=== PATIENT | female | born 1990 | race Caucasian/White ===

== ENCOUNTER 2016-07-20 22:46 | Observation (INO) | payer MEDICAID ==
[~2016-07-20] VITALS: Ht 154.9 cm; Wt 56.0 kg
[~2016-07-20 22:46] MED LIST: 1-ME1LIQ PO; B COTAB7 PO; FERR324T4 PO; GNP50LIQ PO; HYDR50TA15 PO; LABE100 PO; OMEG100037
[2016-07-20 22:48] VITALS: BP 168/109; PULSE 85; RESP 16; TEMP 97.8; O2SAT 100
[2016-07-20] MEDS ORDERED: AMLO5TAB2 PO (23:27)
[2016-07-20] MEDS ORDERED: SODI325T PO ×2 (23:27)
[2016-07-20] MEDS ORDERED: FERR1TAB36 PO (23:27)
[2016-07-20] MEDS ORDERED: CARV12.52 PO (23:27)
[2016-07-20] MEDS ORDERED: SENN1TAB2 PO (23:27)
[2016-07-20] MEDS ORDERED: VITATAB11 (23:27)
[2016-07-20] MEDS ORDERED: SODIUM CHLOR 0.9% 1000 ML INJ 1,000 ML IV SCH (23:33)
[2016-07-20] MEDS ORDERED: SODIUM CHLORIDE 0.9% FLUSH 10 ML FLUSH IV FLUSH PRN (23:45)
[2016-07-20] MEDS ORDERED: MORPHINE SULFATE 4 MG/ML INJ IV PUSH ONE (23:45)
[2016-07-20 23:59] LABS: AUTOMATED NEUTROPHIL # 3.5 TH/MM3 (1.8-7.7); BASOPHIL % 0.4 % (0.0-2.0); EOSINOPHIL # 0.2 TH/MM3 (0-0.4); EOSINOPHIL % 3.1 % (0.0-4.0); HEMATOCRIT 41.6 % (35.0-46.0); HEMO FLAGS DIFF FINAL; LYMPH % 37.1 % (9.0-44.0); LYMPHOCYTE # 2.5 TH/MM3 (1.0-4.8); MEAN CORPUSCULAR HEMOGLOBIN 30.1 PG (27.0-34.0); MEAN CORPUSCULAR HGB CONC 34.2 % (32.0-36.0); NEUT % 51.4 % (16.0-70.0); PLATELET COUNT 214 TH/MM3 (150-450); RED BLOOD COUNT 4.73 MIL/MM3 (4.00-5.30); RED CELL DISTRIBUTION WIDTH 11.8 % (11.6-17.2); WHITE BLOOD COUNT 6.8 TH/MM3 (4.0-11.0)
[2016-07-21] VITALS (9 sets, daily range): BP systolic 113–166; BP diastolic 66–109; PULSE 59–89; RESP 14–21; TEMP 98–98.8; O2SAT 76–100
[2016-07-21 00:08] LABS: APTT (PATIENT) 25.4 SEC (24.3-30.1); PROTHROMBIN TIME - PATIENT 10.5 SEC (9.8-11.6)
--- NOTE | 2016-07-21 00:10 | PD ---
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 Patient reports that she is waiting for kidney transplant, he does see a pantograph machine operator at [facility], Dr. Gillis. Reports that in April, the peritoneal dialysis was placed to the left side of her abdomen at [facility] on April 08, 2016 in preparation for dialysis. Patient reports that she sees her pantograph machine operator and has her peritoneal dialysis catheter flushed every 2 weeks. Reports that she did have this catheter flushed on Wednesday, reports concerns as for the past week, she has had right lower quadrant abdominal pain. She reports that she has no pain to her dialysis site, reports no fevers or chills. Reports that she has been feeling nauseous and has had overall decreased oral intake. Patient reports concerns as her pain has been getting progressively worse over the past week. Patient reports that she had a normal bowel movement yesterday, no bowel movement today. PFSH Past Medical History Gastrointestinal Disorders: Yes (CONSTIPATION ) Hypertension: Yes Tetanus Vaccination: > 5 Years ?: Not LMP: 06/28/2016 Past Surgical History Eye Surgery: Yes Genitourinary Surgery: Yes (PERITONEAL CATHETER ) Social History Alcohol Use: No Tobacco Use: No Substance Use: No Allergies-Medications (Allergen,Severity, Reaction): Coded Allergies: Shellfish (Verified Allergy, Severe, carries EPI Pen, 07/20/16) Reported Meds & Prescriptions Reported Meds & Active Scripts Active Reported Sodium Bicarbonate 325 Mg Tab 325 Mg PO TIDPC Sodium Bicarbonate 325 Mg Tab 325 Mg PO BIDPC Vitamin B Complex (B-Complex Vitamins) 1 Tab Iron (Ferrous Sulfate) 325 Mg Tab 325 Mg PO DAILY Take Carvedilol 12.5 Mg Tab 12.5 Mg PO BID Amlodipine (Amlodipine Besylate) 5 Mg Tab 5 Mg PO BID Senna-Docusate Sodium (Sennosides-Docusate Sodium) 8.6-50 Mg Tab 2 Tab PO DAILY Review of Systems General / Constitutional: No: Fever Eyes: No: Visual changes HENT: No: Headaches Cardiovascular: No: Chest Pain or Discomfort Respiratory: No: Shortness of Breath Gastrointestinal: Positive: Nausea, Vomiting, Abdominal Pain Genitourinary: No: Dysuria Musculoskeletal: No: Pain Skin: No Rash Neurologic: No: Weakness Psychiatric: No: Depression Endocrine: No: Polydipsia Hematologic/Lymphatic: No: Easy Bruising Physical Exam Narrative GENERAL: Moderate distress SKIN: Focused skin assessment warm/dry. HEAD: Atraumatic. Normocephalic. EYES: Pupils equal and round. No scleral icterus. No injection or drainage. ENT: No nasal bleeding or discharge. Mucous membranes pink and moist. NECK: Trachea midline. No JVD. CARDIOVASCULAR: Regular rate and rhythm. No murmur appreciated. RESPIRATORY: No accessory muscle use. Clear to auscultation. Breath sounds equal bilaterally. GASTROINTESTINAL: Abdomen soft, tenderness to RLQ with guarding on exam, patient with no pain to her left lower abdomen, peritoneal dialysis catheter with no drainage or no signs of infection, no peritonitis on exam MUSCULOSKELETAL: No obvious deformities. No clubbing. No cyanosis. No edema. NEUROLOGICAL: Awake and alert. No obvious cranial nerve deficits. Motor grossly within normal limits. Normal speech. PSYCHIATRIC: Appropriate mood and affect; insight and judgment normal. Data Data Last Documented VS Vital Signs Date Time Temp Pulse Resp B/P Pulse Ox O2 Delivery O2 Flow Rate FiO2 07/21/16 00:15 89 16 166/109 100 Room Air 07/20/16 22:48 97.8 Orders Complete Blood Count With Diff (07/20/16 23:33) Comprehensive Metabolic Panel (07/20/16 23:33) Lipase (07/20/16 23:33) Prothrombin Time / Inr (Pt) (07/20/16 23:33) Act Partial Throm Time (Ptt) (07/20/16 23:33) Urinalysis - C+S If Indicated (07/20/16 23:33) Ct Abd/Pel W/O Iv Contrast (07/20/16 23:33) Iv Access Insert/Monitor (07/20/16 23:33) Morphine Inj (Morphine Inj) (07/20/16 23:45) Sodium Chlor 0.9% 1000 Ml Inj (Ns 1000 M (07/20/16 23:33) Sodium Chloride 0.9% Flush (Ns Flush) (07/20/16 23:45) Ed Urine Pregnancytest Poc (07/20/16 23:33) Morphine Inj (Morphine Inj) (07/21/16 02:30) Us Pelvis Comp W Dop Transvag (07/21/16 01:43) Place In Observation (07/21/16 ) Vital Signs (Adult) Q4H (07/21/16 04:11) Activity Oob Ad Miriam (07/21/16 04:11) Intake + Output FRANCIS.QSHIFT (07/21/16 04:11) Diet Regular Basic (07/21/16 Breakfast) Sodium Chlor 0.9% 1000 Ml Inj (Ns 1000 M (07/21/16 04:11) Sodium Chloride 0.9% Flush (Ns Flush) (07/21/16 04:15) Sodium Chloride 0.9% Flush (Ns Flush) (07/21/16 09:00) Acetaminophen (Tylenol) (07/21/16 04:15) Ondansetron Inj (Zofran Inj) (07/21/16 04:15) Comprehensive Metabolic Panel (07/22/16 06:00) Complete Blood Count With Diff (07/22/16 06:00) Resp Oxygen Wallace C Titrat 1-4 L (07/21/16 ) Scd Bilateral/Knee High FRANCIS.BID (07/21/16 04:11) Ovidio Bilateral/Knee High FRANCIS.QSHIFT (07/21/16 04:11) Naloxone Inj (Narcan Inj) (07/21/16 04:15) Morphine Inj (Morphine Inj) (07/21/16 04:15) Labs Laboratory Tests Test 07/20/16 07/21/16 23:15 00:10 White Blood Count 6.8 TH/MM3 Red Blood Count 4.73 MIL/MM3 Hemoglobin 14.2 GM/DL Hematocrit 41.6 % Mean Corpuscular Volume 88.0 FL Mean Corpuscular Hemoglobin 30.1 PG Mean Corpuscular Hemoglobin 34.2 % Concent Red Cell Distribution Width 11.8 % Platelet Count 214 TH/MM3 Mean Platelet Volume 8.5 FL Neutrophils (%) (Auto) 51.4 % Lymphocytes (%) (Auto) 37.1 % Monocytes (%) (Auto) 8.0 % Eosinophils (%) (Auto) 3.1 % Basophils (%) (Auto) 0.4 % Neutrophils # (Auto) 3.5 TH/MM3 Lymphocytes # (Auto) 2.5 TH/MM3 Monocytes # (Auto) 0.5 TH/MM3 Eosinophils # (Auto) 0.2 TH/MM3 Basophils # (Auto) 0.0 TH/MM3 CBC Comment DIFF FINAL Differential Comment Prothrombin Time 10.5 SEC Prothromb Time International 1.0 RATIO Ratio Activated Partial 25.4 SEC Thromboplast Time Sodium Level 142 MEQ/L Potassium Level 4.0 MEQ/L Chloride Level 106 MEQ/L Carbon Dioxide Level 26.1 MEQ/L Anion Gap 10 MEQ/L Blood Urea Nitrogen 38 MG/DL Creatinine 2.88 MG/DL Estimat Glomerular Filtration 20 ML/MIN Rate Random Glucose 84 MG/DL Calcium Level 8.9 MG/DL Total Bilirubin 0.4 MG/DL Aspartate Amino Transf 19 U/L (AST/SGOT) Alanine Aminotransferase 28 U/L (ALT/SGPT) Alkaline Phosphatase 52 U/L Total Protein 7.8 GM/DL Albumin 4.1 GM/DL Lipase 312 U/L Urine Color LIGHT-YELLOW Urine Turbidity CLEAR Urine pH 7.0 Urine Specific [place] 1.005 Urine Protein 30 mg/dL Urine Glucose (UA) NEG mg/dL Urine Ketones NEG mg/dL Urine Occult Blood NEG Urine Nitrite NEG Urine Bilirubin NEG Urine Urobilinogen LESS THAN 2.0 MG/DL Urine Leukocyte Esterase NEG Urine Squamous Epithelial 2 /hpf Cells Microscopic Urinalysis Comment CULT NOT INDICATED MDM Medical Decision Making Medical Screen Exam Complete: Yes Emergency Medical Condition: Yes Interpretation(s) Vital Signs Date Time Temp Pulse Resp B/P Pulse Ox O2 Delivery O2 Flow Rate FiO2 07/20/16 22:48 97.8 85 16 168/109 100 Room Air Differential Diagnosis Acute appendicitis, constipation, UTI, pyelonephritis, ovarian torsion, ovarian cyst, peritonitis Narrative Course Patient is a 25-year-old female who presents to emergency room with complaints of right lower quadrant abdominal pain which has been ongoing for the past week. She reports that the only change that she has had it for the past week with that she had her peritoneal dialysis flushed on Wednesday. Patient with no pain to her peritoneal dialysis abdominal site. Patient with no fevers or chills, reports nausea and vomiting. On exam, patient does have significant tenderness to her right lower quadrant, her dialysis site does not appear to be infected. Labs including CT abdomen and pelvis ordered to evaluate for possible appendicitis. CBC & BMP Diagram 5/22/17 23:15 Last Impressions Abdomen/Pelvis CT 07/20/16 1643 Signed Impressions: Service Date/Time: Thursday, July 21, 2016 01:00 - CONCLUSION: Asymmetrical size of the kidneys, otherwise unremarkable. Saturnino Nix MD Patient continues to have pain, CT of the abdomen and pelvis shows unremarkable appendix. Pelvic ultrasound ordered to evaluate for possible ovarian cysts Last Impressions Abdomen/Pelvis/Transvag US 07/21/16 0143 Signed Impressions: Service Date/Time: Thursday, July 21, 2016 02:23 - CONCLUSION: Small left ovarian cyst, slight fluid within the pelvis and intrauterine cavity. Saturnino Nix MD Abdomen/Pelvis CT 07/20/162332 Signed Impressions: Service Date/Time: Thursday, July 21, 2016 01:00 - CONCLUSION: Asymmetrical size of the kidneys, otherwise unremarkable. Saturnino Nix MD All labs and all studies reviewed with patient and her family members in detail. Patient not feeling any better at this time. Family requesting admission for pain control and serial abdominal evaluations case reviewed with Dr. Hunter who accepts pt to service Diagnosis Primary Impression: Ovarian cyst Additional Impression: Abdominal pain Qualified Code: R10.31 - Right lower quadrant abdominal pain Admitting Information Admitting Physician Requests: Observation Patient Instructions: General Instructions, Narcotic given in the ED Additional Instructions: Please provide patient with a copy of her lab work and studies at discharge Please follow-up with your primary care doctor, telegraph printer mechanic as well as your pantograph machine operator first thing in the morning Return to the emergency room if symptoms worsen or progress Return to the emergency room as needed Condition: Stable Erin Hoyt DO July 21, 2016 00:10
[2016-07-21 00:21] LABS: ALKALINE PHOSPHATASE 52 U/L (45-117); ALT (GPT) 28 U/L (10-53); ANION GAP 10 MEQ/L (5-15); AST (GOT) 19 U/L (15-37); BICARBONATE 26.1 MEQ/L (21.0-32.0); BLOOD UREA NITROGEN 38 MG/DL (7-18); CHLORIDE 106 MEQ/L (98-107); GLOMERULAR FILTRATION RATE 20 ML/MIN (>89); SODIUM (NA) 142 MEQ/L (136-145); TOTAL BILIRUBIN ADULT 0.4 MG/DL (0.2-1.0)
[2016-07-21 00:36] LABS: BLOOD, URINE NEG (NEG); GLUCOSE,URINE NEG (NEG); KETONE, URINE NEG (NEG); NITRITE,URINE NEG (NEG); SQUAMOUS EPITHELIAL CELL URINE 2 /hpf (0-5); URINE COLOR LIGHT-YELLOW (YELLW/STRAW)
[2016-07-21 00:41] LABS: COMMENT (UR) CULT NOT INDICATED; CULTURE IF INDICATED CULT NOT INDICATED
--- NOTE | 2016-07-21 01:13 | RADRPT ---
EXAM DATE/TIME: 07/21/2016 01:00 [facility] COMPARISON: No previous studies available for comparison. INDICATIONS : Right lower quadrant pain x1 week. ORAL CONTRAST: No oral contrast ingested. RADIATION DOSE: 4.84 CTDIvol (mGy) MEDICAL HISTORY : Renal failure, stage 5. Peritoneal catheter. SURGICAL HISTORY : None. ENCOUNTER: Initial ACUITY: 1 week PAIN SCALE: 10/10 LOCATION: Right lower quadrant TECHNIQUE: Volumetric scanning of the abdomen and pelvis was performed. Using automated exposure control and adjustment of the mA and/or kV according to patient size, radiation dose was kept as low as reasonably achievable to obtain optimal diagnostic quality images. FINDINGS: CT Abdomen: The right kidney measures 5.5 and the left side measures 7.8 cm in craniocaudal dimension . There is no evidence for any stones in the kidneys or the course of the ureters on either side. The re is no hydronephrosis. The liver, spleen, pancreas, adrenals are unremarkable. There is no evidence for any appreciable pathological adenopathy, free fluid, or bowel obstruction. There is a tube in t he peritoneal cavity may be a dialysis catheter. CT pelvis: There is no evidence for mass, abscess formation, or any significant adenopathy within the pelvis. The appendix appears intact without definite signs of appendicitis. CONCLUSION: Asymmetrical size of the kidneys, otherwise unremarkable. Saturnino Nix MD on July 21, 2016 at 1:07 Board Certified Radiologist. This report was verified electronically.
[2016-07-21] MEDS ORDERED: MORPHINE SULFATE 4 MG/ML INJ IV PUSH ONE (02:30)
--- NOTE | 2016-07-21 03:40 | RADRPT ---
EXAM DATE/TIME: 07/21/2016 02:23 [facility] COMPARISON: CT ABDOMEN & PELVIS W/O CONTRAST, July 21, 2016, 1:00. INDICATIONS : Right pelvic and flank pain. MEDICAL HISTORY : Hypertension. SURGICAL HISTORY : Thyroidectomy. Left eye prosthetic. Peritoneal catheter. Scar revision. ENCOUNTER: Initial ACUITY: 1 week PAIN SCORE: 10/10 LOCATION: Bilateral pelvis MEASUREMENTS: UTERUS: 7.6 x 3.8 x 3.3 cm ENDOMETRIAL STRIPE: 7 mm RIGHT OVARY: Nonvisualized LEFT OVARY: 2.8 x 2.6 x 1.9 cm FINDINGS: There is slight fluid within the lower uterine segment and there is also slight fluid within the left adnexa and cul-de-sac. An approximate 2.3 cm simple cyst is present in the left ovary and the right ovary is not visualized. CONCLUSION: Small left ovarian cyst, slight fluid within the pelvis and intrauterine cavity. Saturnino Nix MD on July 21, 2016 at 3:36 Board Certified Radiologist. This report was verified electronically.
[2016-07-21] MEDS ORDERED: ACETAMINOPHEN 325 MG TAB PO PRN (04:15)
[2016-07-21] MEDS ORDERED: NALOXONE HCL 0.4 MG/ML AMP IV PRN (04:15)
[2016-07-21] MEDS ORDERED: SODIUM CHLORIDE 0.9% FLUSH 10 ML FLUSH IV FLUSH PRN (04:15)
[2016-07-21] MEDS ORDERED: ONDANSETRON HCL 4 MG/2 ML VIAL IVP PRN (04:15)
--- NOTE | 2016-07-21 05:17 | HHI.HP ---
[facility] Service 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 Patient's last menstrual period 06/28/2016. Patient denies being sexually active and urine test in ER negative. Patient presents to the emergency department with complaints of right lower quadrant abdominal pain times one week. Patient describes the pain as progressively getting worse in nature 10 out of 10 in severity at its worse. RLQ abdominal pain described as a constant aching sensation worse with movement. Pain is better after morphine , is currently a 5 out of 10 associated with nausea but no vomiting. Patient reports last bowel movement was yesterday continues to have positive flatus. Patient denies chest pain vomiting diarrhea fevers chills or shortness of breath. Patient does have PD catheter on the left side of her abdomen was last flushed 07/13/2016. There is no discharge or erythema surrounding PD catheter insertion site. Patient has not yet used PD catheter for dialysis does have flushed routinely every 2 weeks. The patient says she normally has abdominal pain associated with her menses but because this is been going on for 1 week she got concerned as that was atypical. She says she has a PD catheter for dialysis which was placed this April. She says she is hoping not to use it but it is there in case she needs to start dialysis. She says she has been having normal urine output. She denies any symptoms associated with urination. She endorses constipation. 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 and hypertension Past Surgical History Multiple bilateral eye surgery secondary to premature retinopathy, tonsillectomy 1993, left eye prosthetic, PD catheter placed April 08, 2016 Reported Medications Sodium Bicarbonate 325 Mg Tab 325 Mg PO TIDPC Sodium Bicarbonate 325 Mg Tab 325 Mg PO BIDPC Vitamin B Complex (B-Complex Vitamins) 1 Tab Iron (Ferrous Sulfate) 325 Mg Tab 325 Mg PO DAILY Take Carvedilol 12.5 Mg Tab 12.5 Mg PO BID Amlodipine (Amlodipine Besylate) 5 Mg Tab 5 Mg PO BID Senna-Docusate Sodium (Sennosides-Docusate Sodium) 8.6-50 Mg Tab 2 Tab PO DAILY Allergies: Coded Allergies: Shellfish (Verified Allergy, Severe, carries EPI Pen, 07/20/16) Active Ordered Medications Current Medications Medications (Trade) Dose Ordered Sig/Edgardo Route Start Time Stop Time Status Last Admin (NS 1000 ml Inj) 1,000 ml @ 42 mls/hr [id number] IV 07/21/16 04:11 (NS Flush) 2 ml UNSCH PRN IV FLUSH 07/21/16 04:15 (NS Flush) 2 ml BID IV FLUSH 07/21/16 09:00 (Tylenol) 650 mg Q4H PRN PO 07/21/16 04:15 (Zofran Inj) 4 mg Q6H PRN IVP 07/21/16 04:15 (Narcan Inj) 0.4 mg UNSCH PRN IV 07/21/16 04:15 (Morphine Inj) 2 mg Q3H PRN IV PUSH 07/21/16 04:15 Family History Mother is 57 alive with prediabetes Father's 59 alive and healthy Maternal grandfather with history of CAD and CABG Paternal grandmother history of cancer unknown type Social History Denies tobacco use now the past denies illicit drug use known past reports rare EtOH use Physical Exam Vital Signs Vital Signs Date Time Temp Pulse Resp B/P Pulse Ox O2 Delivery O2 Flow Rate FiO2 07/21/16 04:24 74 14 123/87 98 Room Air 07/21/16 00:15 89 16 166/109 100 Room Air 07/20/16 22:48 97.8 85 16 168/109 100 Room Air Physical Exam GENERAL: This is a well-nourished, well-developed patient, appears anxious with discomfort SKIN: No rashes, ecchymoses or lesions. Cool and dry. HEAD: Atraumatic. Normocephalic. No temporal or scalp tenderness. EYES: Prosthetic left eye. Right eye extraocular motions intact. CARDIOVASCULAR: Regular rate and rhythm without murmurs, gallops, or rubs. RESPIRATORY: Clear to auscultation. Breath sounds equal bilaterally. No wheezes , rales, or rhonchi. GASTROINTESTINAL: Abdomen soft, tender to palpation right lower quadrant, nondistended. MUSCULOSKELETAL: Extremities without clubbing, cyanosis, or edema. No joint tenderness, effusion, or edema noted. No calf tenderness. Negative Homans sign bilaterally. NEUROLOGICAL: Awake and alert. No focal deficits appreciated. Motor and sensory grossly within normal limits. Five out of 5 muscle strength in all muscle groups. Normal speech. GEN: NAD. HEENT: Prosthetic left eye. Abdomen: Tender to palpation in RLQ, and below umbilicus. NEURO: Nystagmus noted in right eye. PSYCH: Mood and affect appropriate. Laboratory Laboratory Tests Test 07/20/16 07/21/16 23:15 00:10 White Blood Count 6.8 Red Blood Count 4.73 Hemoglobin 14.2 Hematocrit 41.6 Mean Corpuscular Volume 88.0 Mean Corpuscular Hemoglobin 30.1 Mean Corpuscular Hemoglobin 34.2 Concent Red Cell Distribution Width 11.8 Platelet Count 214 Mean Platelet Volume 8.5 Neutrophils (%) (Auto) 51.4 Lymphocytes (%) (Auto) 37.1 Monocytes (%) (Auto) 8.0 Eosinophils (%) (Auto) 3.1 Basophils (%) (Auto) 0.4 Neutrophils # (Auto) 3.5 Lymphocytes # (Auto) 2.5 Monocytes # (Auto) 0.5 Eosinophils # (Auto) 0.2 Basophils # (Auto) 0.0 CBC Comment DIFF FINAL Differential Comment Prothrombin Time 10.5 Prothromb Time International 1.0 Ratio Activated Partial 25.4 Thromboplast Time Sodium Level 142 Potassium Level 4.0 Chloride Level 106 Carbon Dioxide Level 26.1 Anion Gap 10 Blood Urea Nitrogen 38 Creatinine 2.88 Estimat Glomerular Filtration 20 Rate Random Glucose 84 Calcium Level 8.9 Total Bilirubin 0.4 Aspartate Amino Transf 19 (AST/SGOT) Alanine Aminotransferase 28 (ALT/SGPT) Alkaline Phosphatase 52 Total Protein 7.8 Albumin 4.1 Lipase 312 Urine Color LIGHT-YELLOW Urine Turbidity CLEAR Urine pH 7.0 Urine Specific [place] 1.005 Urine Protein 30 Urine Glucose (UA) NEG Urine Ketones NEG Urine Occult Blood NEG Urine Nitrite NEG Urine Bilirubin NEG Urine Urobilinogen LESS THAN 2.0 Urine Leukocyte Esterase NEG Urine Squamous Epithelial 2 Cells Microscopic Urinalysis Comment CULT NOT INDICATED Result Diagram: 07/20/16 2315 07/20/16 231 Imaging Last Impressions Abdomen/Pelvis/Transvag US 07/21/16 0143 Signed Impressions: Service Date/Time: Thursday, July 21, 2016 02:23 - CONCLUSION: Small left ovarian cyst, slight fluid within the pelvis and intrauterine cavity. Saturnino Nix MD Abdomen/Pelvis CT 07/20/16 2333 Signed Impressions: Service Date/Time: Thursday, July 21, 2016 01:00 - CONCLUSION: Asymmetrical size of the kidneys, otherwise unremarkable. 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 Patient's last menstrual period 06/28/2016. Patient denies being sexually active and urine test in ER negative. Patient presents to the emergency department with complaints of right lower quadrant abdominal pain times one week. Right lower quadrant abdominal pain unknown etiology (patient afebrile with no leukocytosis with blood cell count 6.8) Abdomen pelvis transvaginal US reviewed and reveals: Small left ovarian cyst , slight fluid within the pelvis and intrauterine cavity. CT abdomen and pelvis without contrast reveals: Asymmetrical size of the kidneys, otherwise unremarkable. The appendix appears intact without definite signs of appendicitis. STAT abdominal ultrasound to further evaluate for appendicitis Morphine IV for pain control as needed No clear etiology for abdominal pain. CT of the abdomen was reassuring however without contrast. Will obtain an ultrasound to rule out appendicitis. Right ovary was not visualized on pelvic ultrasound, which may be a component of the pt's pain. Pain control with a bowel regimen. Chronic kidney disease stage IV from focal segmental glomerulosclerosis Avoid nephrotoxic agents continue to monitor renal function Monitor urine output. She is looking for potential donors. Outpt follow-up. Hypertension- chronic continue home amlodipine 5 mg by mouth twice a day and cold a lot 12.5 mg by mouth twice a day Continue to monitor blood pressure trend Chronic constipation- chronic continue senna-docusate 2 tablets by mouth daily DVT prophylaxis with SCDs Discussed with ER provider, nursing, patient and Dr. Jacob Attending Statement The exam, history, and the medical decision-making described in the above note were completed with the assistance of the mid-level provider. I reviewed and agree with the findings presented. I attest that I had a [id number] encounter with the patient on the same day, and personally performed and documented my assessment and findings in the medical record. Problem Qualifiers (1) Abdominal pain: Qualified Code: R10.31 - Right lower quadrant abdominal pain Ly Contreras July 21, 2016 05:17 Bandar Jacob DO July 21, 2016 05:36
[2016-07-21] MEDS: SODIUM CHLOR 0.9% 1000 ML INJ 1,000 ML IV SCH (05:49)
--- NOTE | 2016-07-21 07:38 | RADRPT ---
EXAM DATE/TIME: 07/21/2016 07:17 [facility] COMPARISON: CT ABDOMEN & PELVIS W/O CONTRAST, July 21, 2016, 1:00. INDICATIONS : Right lower quadrant pain. MEDICAL HISTORY : Hypertension. Right lower quadrant pain. SURGICAL HISTORY : Tonsillectomy. Peritoneal catheter. ENCOUNTER: Initial ACUITY: 3 days PAIN SCORE: 4/10 LOCATION: Right lower quadrant AREA EVALUATED: Right lower quadrant. FINDINGS: No inflammatory changes are seen in the right lower quadrant. No mass, fluid collection or ascites. CONCLUSION: Negative right lower quadrant ultrasound. No evidence of acute appendicitis. Rich Avalos MD on July 21, 2016 at 7:35 Board Certified Radiologist. This report was verified electronically.
[2016-07-21] MEDS: MORPHINE SULFATE 4 MG/ML INJ IV PUSH PRN ×2 (08:11→16:57)
[2016-07-21] MEDS: CARVEDILOL 12.5 MG TAB PO SCH ×2 (08:11→20:45)
[2016-07-21] MEDS: FERROUS SULFATE 325 MG (65 MG ELEMENTAL IRON) TAB PO SCH (08:12)
[2016-07-21] MEDS: amLODIPine BESYLATE 5 MG TAB PO SCH ×2 (08:12→20:45)
[2016-07-21] MEDS: DOCUSATE SODIUM 50 MG/SENNA 8.6 MG TAB PO SCH (08:12)
[2016-07-21] MEDS: POLYETHYLENE GLYCOL 17 GM PKG PO SCH (08:12)
[2016-07-21] MEDS: SODIUM CHLORIDE 0.9% FLUSH 10 ML FLUSH IV FLUSH SCH ×2 (08:12→20:27)
[2016-07-21] MEDS: SODIUM BICARBONATE 325 MG TAB PO SCH ×2 (08:25→17:03)
--- NOTE | 2016-07-21 15:39 | HHI.PR ---
Subjective Remarks Follow-up for abdominal pain. The patient has been having constant, sharp, RLQ abdominal pain for 8 days now. She states the pain medicine does help ease the pain some. She's been tolerating oral intake without vomiting. She states she' s been having problems with constipation, and had a hard bowel movement yesterday morning. She denies any fevers or chills. Objective Vitals Vital Signs Date Time Temp Pulse Resp B/P Pulse Ox O2 Delivery O2 Flow Rate FiO2 07/21/16 11:18 98.0 60 21 127/80 100 07/21/16 08:04 98.0 59 18 124/80 100 07/21/16 05:17 98 07/21/16 04:24 74 14 123/87 98 Room Air 07/21/16 00:15 89 16 166/109 100 Room Air 07/20/16 22:48 97.8 85 16 168/109 100 Room Air Result Diagram: 07/20/16 2315 07/20/16 2315 Imaging Last Impressions Abdomen/Pelvis/Transvag US 07/21/16 0143 Signed Impressions: Service Date/Time: Thursday, July 21, 2016 02:23 - CONCLUSION: Small left ovarian cyst, slight fluid within the pelvis and intrauterine cavity. Saturnino Nix MD Abdomen Ultrasound 07/21/16 0000 Signed Impressions: Service Date/Time: Thursday, July 21, 2016 07:17 - CONCLUSION: Negative right lower quadrant ultrasound. No evidence of acute appendicitis. Rich Avalos MD Abdomen/Pelvis CT 07/20/16 2333 Signed Impressions: Service Date/Time: Thursday, July 21, 2016 01:00 - CONCLUSION: Asymmetrical size of the kidneys, otherwise unremarkable. Saturnino Nix MD Objective Remarks GENERAL: Well-developed well-nourished. In no acute distress. SKIN: Warm and dry. No lesions noted. HEENT: Normocephalic. Prosthetic eye. Mucous membranes pink and moist. CARDIOVASCULAR: Regular rate and rhythm. No murmur appreciated. RESPIRATORY: No accessory muscle use. Clear to auscultation. Breath sounds equal bilaterally. GASTROINTESTINAL: Abdomen soft, RLQ TTP, nondistended. Bowel sounds x4. PD catheter in place in left abdomen. No rebound tenderness. MUSCULOSKELETAL: No obvious deformities. No clubbing or cyanosis. No edema. NEUROLOGICAL: Awake and alert. No focal neurological deficits. Moves upper and lower extremities spontaneously. Normal speech. PSYCHIATRIC: Appropriate mood and affect; insight and judgment normal. 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 Patient's last menstrual period 06/28/2016. Patient denies being sexually active and urine test in ER negative. Patient presents to the emergency department with complaints of right lower quadrant abdominal pain times one week. Right lower quadrant abdominal pain. Unknown etiology. Reviewed: Afebrile. No leukocytosis. Abdomen/pelvis/transvaginal US showed Small left ovarian cyst, slight fluid within the pelvis and intrauterine cavity , no evidence of acute appendicitis. LFTs and lipase within normal limits. Consult gastroenterology Tramadol and Morphine IV for pain control as needed Diet as tolerated for now Bowel regimen for constipation Chronic kidney disease stage IV from focal segmental glomerulosclerosis Reviewed: Creatinine 2.8, no previous labs for comparison. Gentle IVF. Avoid nephrotoxic agents Continue to monitor renal function Continue home bicarbonate Hypertension- chronic, stable continue home amlodipine 5 mg by mouth twice a day and carvedilol 12.5 mg by mouth twice a day Continue to monitor blood pressure trend DVT prophylaxis with SCDs Discharge Planning Follow-up GI recommendations Problem Qualifiers (1) Abdominal pain: Qualified Code: R10.31 - Right lower quadrant abdominal pain Cirilo Roger July 21, 2016 15:39
[2016-07-21] MEDS ORDERED: traMADol HCL 50 MG TAB PO PRN (15:45)
--- NOTE | 2016-07-21 16:10 | PD.CONS ---
HPI History of Present Illness This is a 25 year old [female] who presented to ER last night with severe right lower side stomach pain, radiates to back. Onset 8 days ago, sudden onset. It is an achey pain at times sharp, constant. She has been nauseous as well. NO relieving or aggravating factors. AT the moment it is 8/10. Never had this pain before. She does admit constipation, last BM 2 days ago and normal per pt but she has been taking 2 stool softeners and a laxative daily since september. She was diagnosed with CKD IV in september r/t FSGS. She started BP medication in september. No vomiting or diarrhea, no blood in stool. 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 and hypertension Past Surgical History Multiple bilateral eye surgery secondary to premature retinopathy, tonsillectomy 1993, left eye prosthetic, PD catheter placed April 08, 2016 scar revision stomach 2010 (peritoneal dialysis catheter insertion scar from ) (Radha May) Coded Allergies: Shellfish (Verified Allergy, Severe, carries EPI Pen, 07/20/16) Medications Current Medications Medications (Trade) Dose Ordered Sig/Edgardo Route PRN Reason Start Time Stop Time Status Last Admin Dose Admin Sodium Chloride (NS 1000 ml Inj) 1,000 ml @ 42 mls/hr [id number] IV 07/21/16 04:11 07/21/16 05:49 Sodium Chloride (NS Flush) 2 ml UNSCH PRN IV FLUSH FLUSH AFTER USING IV ACCESS 07/21/16 04:15 07/21/16 08:13 Sodium Chloride (NS Flush) 2 ml BID IV FLUSH 07/21/16 09:00 07/21/16 08:12 Acetaminophen (Tylenol) 650 mg Q4H PRN PO TEMP > 100.4 07/21/16 04:15 Ondansetron HCl (Zofran Inj) 4 mg Q6H PRN IVP NAUSEA OR VOMITING 07/21/16 04:15 Naloxone HCl (Narcan Inj) 0.4 mg UNSCH PRN IV SEE LABEL COMMENTS 07/21/16 04:15 Morphine Sulfate (Morphine Inj) 2 mg Q3H PRN IV PUSH BREAKTHROUGH PAIN 07/21/16 04:15 07/21/16 08:11 Amlodipine Besylate (Norvasc) 5 mg BID PO 07/21/16 09:00 07/21/16 08:12 Carvedilol (Coreg) 12.5 mg BID PO 07/21/16 09:00 07/21/16 08:11 Ferrous Sulfate (Ferrous Sulfate) 325 mg DAILY PO 07/21/16 09:00 07/21/16 08:12 Senna/Docusate Sodium (Ermelinda-Colace) 2 tab DAILY PO 07/21/16 09:00 07/21/16 08:12 Sodium Bicarbonate (Sodium Bicarbonate) 325 mg BIDPC PO 07/21/16 09:00 07/21/16 08:25 Polyethylene Glycol (Miralax) 17 gm DAILY PO 07/21/16 09:00 07/21/16 08:12 Tramadol HCl (Ultram) 50 mg Q8H PRN PO PAIN SCALE 6 TO 10 07/21/16 15:45 Family History Mother is 57 alive with prediabetes Father's 59 alive and healthy Maternal grandfather with history of CAD and CABG Paternal grandmother history of cancer unknown type Social History rare ETOH since september, prior use occasional no tobacco no illicit drugs (Radha May) Review of Systems Constitutional: DENIES: Fever Eyes: DENIES: Blurred vision Ears, nose, mouth, throat: DENIES: Hearing loss Respiratory: DENIES: Cough Cardiovascular: DENIES: Chest pain Gastrointestinal: COMPLAINS OF: Abdominal pain, Constipation, Nausea, DENIES: Black stools, Bloody stools, Diarrhea, Vomiting Genitourinary: DENIES: Hematuria Musculoskeletal: DENIES: Joint Swelling Integumentary: DENIES: Rash Hematologic/lymphatic: DENIES: Bruising Neurologic: DENIES: Abnormal gait Psychiatric: DENIES: Confusion (Radha May) GI Exam Vitals I&O Vital Signs Date Time Temp Pulse Resp B/P Pulse Ox O2 Delivery O2 Flow Rate FiO2 07/21/16 11:18 98.0 60 21 127/80 100 07/21/16 08:04 98.0 59 18 124/80 100 07/21/16 05:17 98 07/21/16 04:24 74 14 123/87 98 Room Air 07/21/16 00:15 89 16 166/109 100 Room Air 07/20/16 22:48 97.8 85 16 168/109 100 Room Air Imaging Last Impressions Abdomen/Pelvis/Transvag US 07/21/16 0143 Signed Impressions: Service Date/Time: Thursday, July 21, 2016 02:23 - CONCLUSION: Small left ovarian cyst, slight fluid within the pelvis and intrauterine cavity. Saturnino Nix MD Abdomen Ultrasound 07/21/16 0000 Signed Impressions: Service Date/Time: Thursday, July 21, 2016 07:17 - CONCLUSION: Negative right lower quadrant ultrasound. No evidence of acute appendicitis. Rich Avalos MD Abdomen/Pelvis CT 07/20/16 2333 Signed Impressions: Service Date/Time: Thursday, July 21, 2016 01:00 - CONCLUSION: Asymmetrical size of the kidneys, otherwise unremarkable. Saturinno Nix MD Laboratory Test 07/20/16 07/21/16 23:15 00:10 White Blood Count 6.8 TH/MM3 Red Blood Count 4.73 MIL/MM3 Hemoglobin 14.2 GM/DL Hematocrit 41.6 % Mean Corpuscular Volume 88.0 FL Mean Corpuscular Hemoglobin 30.1 PG Mean Corpuscular Hemoglobin 34.2 % Concent Red Cell Distribution Width 11.8 % Platelet Count 214 TH/MM3 Mean Platelet Volume 8.5 FL Neutrophils (%) (Auto) 51.4 % Lymphocytes (%) (Auto) 37.1 % Monocytes (%) (Auto) 8.0 % Eosinophils (%) (Auto) 3.1 % Basophils (%) (Auto) 0.4 % Neutrophils # (Auto) 3.5 TH/MM3 Lymphocytes # (Auto) 2.5 TH/MM3 Monocytes # (Auto) 0.5 TH/MM3 Eosinophils # (Auto) 0.2 TH/MM3 Basophils # (Auto) 0.0 TH/MM3 CBC Comment DIFF FINAL Differential Comment Prothrombin Time 10.5 SEC Prothromb Time International 1.0 RATIO Ratio Activated Partial 25.4 SEC Thromboplast Time Sodium Level 142 MEQ/L Potassium Level 4.0 MEQ/L Chloride Level 106 MEQ/L Carbon Dioxide Level 26.1 MEQ/L Anion Gap 10 MEQ/L Blood Urea Nitrogen 38 MG/DL Creatinine 2.88 MG/DL Estimat Glomerular Filtration 20 ML/MIN Rate Random Glucose 84 MG/DL Calcium Level 8.9 MG/DL Total Bilirubin 0.4 MG/DL Aspartate Amino Transf 19 U/L (AST/SGOT) Alanine Aminotransferase 28 U/L (ALT/SGPT) Alkaline Phosphatase 52 U/L Total Protein 7.8 GM/DL Albumin 4.1 GM/DL Lipase 312 U/L Urine Color LIGHT-YELLOW Urine Turbidity CLEAR Urine pH 7.0 Urine Specific [place] 1.005 Urine Protein 30 mg/dL Urine Glucose (UA) NEG mg/dL Urine Ketones NEG mg/dL Urine Occult Blood NEG Urine Nitrite NEG Urine Bilirubin NEG Urine Urobilinogen LESS THAN 2.0 MG/DL Urine Leukocyte Esterase NEG Urine Squamous Epithelial 2 /hpf Cells Microscopic Urinalysis Comment CULT NOT INDICATED Physical Examination HEENT: nystagmus OS; normocephalic; atraumatic; no jaundice. CHEST: CTA CARDIAC: RRR ABDOMEN: Soft, nondistended, RLQ TTP; no hepatosplenomegaly; bowel sounds are present in all four quadrants. EXTREMITIES: No clubbing, cyanosis, or edema. SKIN: Normal; no rash; no jaundice. CHARTERED FINANCIAL ANALYST: No focal deficits; alert and oriented times three. (Radha May) Assessment and Plan Plan ASSESSMENT - abdominal pain, RLQ. - unclear etiology Pt admits nausea, constipation. Imaging thus far unremarkable. Labwork WNL except kidney function. US PELVIS 07-21-16 --> Small left ovarian cyst, slight fluid within the pelvis and intrauterine cavity. Abdomen Ultrasound 07/21/16 Negative right lower quadrant ultrasound. No evidence of acute appendicitis. Abdomen/Pelvis CT 07/20/16 --> Asymmetrical size of the kidneys, otherwise unremarkable. - CKD IV - has PD catheter but has not used yet, still makes urine. GFR 20. PLAN - REINALDO - consult GS Further recommendations after Pt seen by Dr Page This pt seen by Dr Page and myself and this note is written on his behalf ( Radha May) Physician Comments Patient seen and examined Agree with above Continue with current supportive care Monitor labs Etiology unclear for current abdominal pain will ask for a surgical evaluation ( Preston Page MD) Radha May July 21, 2016 16:09 Preston Page MD July 21, 2016 19:22
[2016-07-21] MEDS ORDERED: PEG (High)/E-LYTE SOLN 4000 ML BTL PO ONE (21:00)
[2016-07-22] MEDS: SODIUM CHLOR 0.9% 1000 ML INJ 1,000 ML IV SCH (04:00)
[2016-07-22 04:40] VITALS: BP 122/78; PULSE 73; RESP 18; TEMP 98.2; O2SAT 99
[2016-07-22 05:08] LABS: AUTOMATED NEUTROPHIL # 3.4 TH/MM3 (1.8-7.7); BASOPHIL % 0.5 % (0.0-2.0); EOSINOPHIL # 0.2 TH/MM3 (0-0.4); HEMATOCRIT 36.8 % (35.0-46.0); HEMO FLAGS DIFF FINAL; LYMPH % 32.4 % (9.0-44.0); LYMPHOCYTE # 2.1 TH/MM3 (1.0-4.8); MEAN CELL VOLUME 88.4 FL (80.0-100.0); MEAN CORPUSCULAR HEMOGLOBIN 29.7 PG (27.0-34.0); MEAN CORPUSCULAR HGB CONC 33.6 % (32.0-36.0); MONO % 9.5 % (0.0-8.0); NEUT % 54.6 % (16.0-70.0); PLATELET COUNT 184 TH/MM3 (150-450); RED BLOOD COUNT 4.16 MIL/MM3 (4.00-5.30); WHITE BLOOD COUNT 6.3 TH/MM3 (4.0-11.0)
[2016-07-22 05:40] LABS: ALKALINE PHOSPHATASE 39 U/L (45-117); ALT (GPT) 22 U/L (10-53); ANION GAP 6 MEQ/L (5-15); AST (GOT) 13 U/L (15-37); BICARBONATE 29.2 MEQ/L (21.0-32.0); BLOOD UREA NITROGEN 31 MG/DL (7-18); CHLORIDE 108 MEQ/L (98-107); GLOMERULAR FILTRATION RATE 20 ML/MIN (>89); POTASSIUM 4.1 MEQ/L (3.5-5.1); SODIUM (NA) 143 MEQ/L (136-145); TOTAL BILIRUBIN ADULT 0.3 MG/DL (0.2-1.0)
[2016-07-22] MEDS: MORPHINE SULFATE 4 MG/ML INJ IV PUSH PRN (07:54)
[2016-07-22 08:00] VITALS: BP 136/80; PULSE 65; RESP 18; TEMP 96; O2SAT 98
[2016-07-22] MEDS: CARVEDILOL 12.5 MG TAB PO SCH ×2 (08:37→21:00)
[2016-07-22] MEDS: DOCUSATE SODIUM 50 MG/SENNA 8.6 MG TAB PO SCH (08:37)
[2016-07-22] MEDS: SODIUM CHLORIDE 0.9% FLUSH 10 ML FLUSH IV FLUSH SCH ×2 (08:37→21:10)
[2016-07-22] MEDS: POLYETHYLENE GLYCOL 17 GM PKG PO SCH (08:37)
[2016-07-22] MEDS: FERROUS SULFATE 325 MG (65 MG ELEMENTAL IRON) TAB PO SCH (08:37)
[2016-07-22] MEDS: SODIUM BICARBONATE 325 MG TAB PO SCH ×2 (08:37→18:30)
[2016-07-22] MEDS: amLODIPine BESYLATE 5 MG TAB PO SCH ×2 (08:37→21:00)
--- NOTE | 2016-07-22 09:43 | HHI.PR ---
Subjective Remarks Follow-up for abdominal pain. Patient seen with mother at bedside. The patient and he is complaining of right-sided abdominal pain. She does state that the pain radiates into her groin and into her right flank. She denies any back pain or skin lesions. She denies any difficulties ambulating. She's been tolerating oral intake, but does complain of some nausea, no vomiting. She hasn 't had a bowel movement in 3 days, has problems with chronic constipation despite taking stool softeners and laxatives at home. The patient did have surgery for PD as an infant. Objective Vitals Vital Signs Date Time Temp Pulse Resp B/P Pulse Ox O2 Delivery O2 Flow Rate FiO2 07/22/16 08:00 96.0 65 18 136/80 98 07/22/16 04:40 98.2 73 18 122/78 99 07/21/16 23:42 98.3 68 16 113/74 98 07/21/16 19:36 98.2 72 17 117/81 76 07/21/16 17:08 64 126/87 99 07/21/16 16:41 98.8 77 18 117/66 98 07/21/16 11:18 98.0 60 21 127/80 100 Result Diagram: 07/22/16 0435 07/22/16 0435 Imaging Last Impressions Abdomen/Pelvis/Transvag US 07/21/16 0143 Signed Impressions: Service Date/Time: Thursday, July 21, 2016 02:23 - CONCLUSION: Small left ovarian cyst, slight fluid within the pelvis and intrauterine cavity. Saturnino Nix MD Abdomen Ultrasound 07/21/16 0000 Signed Impressions: Service Date/Time: Thursday, July 21, 2016 07:17 - CONCLUSION: Negative right lower quadrant ultrasound. No evidence of acute appendicitis. Rich Avalos MD Abdomen/Pelvis CT 07/20/16 2333 Signed Impressions: Service Date/Time: Thursday, July 21, 2016 01:00 - CONCLUSION: Asymmetrical size of the kidneys, otherwise unremarkable. Saturnino Nix MD Objective Remarks GENERAL: Well-developed well-nourished. In no acute distress. SKIN: Warm and dry. No dermatomal rash noted. HEENT: Normocephalic. Prosthetic eye. Mucous membranes pink and moist. CARDIOVASCULAR: Regular rate and rhythm. No murmur appreciated. RESPIRATORY: No accessory muscle use. Clear to auscultation. Breath sounds equal bilaterally. GASTROINTESTINAL: Abdomen soft, RLQ tender to light palpation, nondistended. Bowel sounds x4. PD catheter in place in left abdomen. MUSCULOSKELETAL: No obvious deformities. No clubbing or cyanosis. No edema. NEUROLOGICAL: Awake and alert. No focal neurological deficits. Moves upper and lower extremities spontaneously. Normal speech. PSYCHIATRIC: Appropriate mood and affect; insight and judgment normal. 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 Patient's last menstrual period 06/28/2016. Patient denies being sexually active and urine test in ER negative. Patient presents to the emergency department with complaints of right lower quadrant abdominal pain times one week. Right lower quadrant abdominal pain. Unknown etiology. Reviewed: Afebrile. No leukocytosis. Abdomen/pelvis/transvaginal US showed Small left ovarian cyst, slight fluid within the pelvis and intrauterine cavity , no evidence of acute appendicitis. LFTs and lipase within normal limits. Consulted gastroenterology who recommended treatment for constipation and general surgery consult Tramadol and Morphine IV for pain control as needed, limit narcotics for constipation, patient and family aware and agree Diet as tolerated for now Bowel regimen for constipation, GI added GoLYTELY Chronic kidney disease stage IV from focal segmental glomerulosclerosis. PD catheter in place, not in use. Reviewed: Creatinine 2.88, no previous labs for comparison. Creatinine stable at 2.78. Gentle IVF. Avoid nephrotoxic agents Continue to monitor renal function Continue home bicarbonate Patient is hoping to get a kidney transplant soon. Hypertension- chronic, stable continue home amlodipine 5 mg by mouth twice a day and carvedilol 12.5 mg by mouth twice a day Continue to monitor blood pressure trend DVT prophylaxis with SCDs Discharge Planning Follow-up GI and surgery recommendations Problem Qualifiers (1) Abdominal pain: Qualified Code: R10.31 - Right lower quadrant abdominal pain Cirilo Roger July 22, 2016 09:43
[2016-07-22] MEDS ORDERED: PEG (High)/E-LYTE SOLN 4000 ML BTL PO ONE (10:15)
--- NOTE | 2016-07-22 11:02 | HHI.GIFU ---
Subjective Remarks Patient still with RLQ pain, and nausea, decreased appetite. She is drinking golytely today, still no BM, her normal is daily BM (Shante[place],Ana CUSTOMER CARE COORDINATOR) Objective Vitals I&O Vital Signs Date Time Temp Pulse Resp B/P Pulse Ox O2 Delivery O2 Flow Rate FiO2 07/22/16 08:00 96.0 65 18 136/80 98 07/22/16 04:40 98.2 73 18 122/78 99 07/21/16 23:42 98.3 68 16 113/74 98 07/21/16 19:36 98.2 72 17 117/81 76 07/21/16 17:08 64 126/87 99 07/21/16 16:41 98.8 77 18 117/66 98 07/21/16 11:18 98.0 60 21 127/80 100 Laboratory Laboratory Tests Test 07/22/16 04:35 White Blood Count 6.3 Red Blood Count 4.16 Hemoglobin 12.4 Hematocrit 36.8 Mean Corpuscular Volume 88.4 Mean Corpuscular Hemoglobin 29.7 Mean Corpuscular Hemoglobin 33.6 Concent Red Cell Distribution Width 12.0 Platelet Count 184 Mean Platelet Volume 8.1 Neutrophils (%) (Auto) 54.6 Lymphocytes (%) (Auto) 32.4 Monocytes (%) (Auto) 9.5 Eosinophils (%) (Auto) 3.0 Basophils (%) (Auto) 0.5 Neutrophils # (Auto) 3.4 Lymphocytes # (Auto) 2.1 Monocytes # (Auto) 0.6 Eosinophils # (Auto) 0.2 Basophils # (Auto) 0.0 CBC Comment DIFF FINAL Differential Comment Sodium Level 143 Potassium Level 4.1 Chloride Level 108 Carbon Dioxide Level 29.2 Anion Gap 6 Blood Urea Nitrogen 31 Creatinine 2.78 Estimat Glomerular Filtration 20 Rate Random Glucose 86 Calcium Level 8.5 Total Bilirubin 0.3 Aspartate Amino Transf 13 (AST/SGOT) Alanine Aminotransferase 22 (ALT/SGPT) Alkaline Phosphatase 39 Total Protein 6.4 Albumin 3.3 Imaging Last Impressions Abdomen/Pelvis/Transvag US 07/21/16 0143 Signed Impressions: Service Date/Time: Thursday, July 21, 2016 02:23 - CONCLUSION: Small left ovarian cyst, slight fluid within the pelvis and intrauterine cavity. Saturnino Nix MD Abdomen Ultrasound 07/21/16 0000 Signed Impressions: Service Date/Time: Thursday, July 21, 2016 07:17 - CONCLUSION: Negative right lower quadrant ultrasound. No evidence of acute appendicitis. Rich Avalos MD Abdomen/Pelvis CT 07/20/16 2333 Signed Impressions: Service Date/Time: Thursday, July 21, 2016 01:00 - CONCLUSION: Asymmetrical size of the kidneys, otherwise unremarkable. Saturnino Nix MD Physical Exam HEENT: normocephalic; atraumatic; no jaundice. Throat is clear. NECK: Neck is supple, no JVD, no lymphadenopathy. CHEST: Chest is clear to auscultation and percussion. CARDIAC: Regular rate and rhythm with no murmur gallop or rubs. ABDOMEN: Soft, nondistended, RLQ tenderness ; no hepatosplenomegaly; bowel sounds are present in all four quadrants. EXTREMITIES: No clubbing, cyanosis, or edema. SKIN: Normal; no rash; no jaundice. SPRING ENCASER: No focal deficits; alert and oriented times three. (Ana Roman) Assessment and Plan Plan ASSESSMENT - abdominal pain, RLQ. - unclear etiology Pt admits nausea, constipation. Imaging thus far unremarkable. Lab-work WNL except kidney function. US PELVIS 07-21-16 --> Small left ovarian cyst, slight fluid within the pelvis and intrauterine cavity. Abdomen Ultrasound 07/21/16 Negative right lower quadrant ultrasound. No evidence of acute appendicitis. Abdomen/Pelvis CT 07/20/16 --> Asymmetrical size of the kidneys, otherwise unremarkable. - CKD IV - has PD catheter but has not used yet, still makes urine. GFR 20. PLAN - clear liquids - Await GS consult - Cont. golytely for now, to facilitate BM and to see if this would give her relief, other vieira, will plan for colonoscopy tomorrow, this was discussed with patient and she is agreeing - Obtain consents for possible colonoscopy in the am - NPO by mn This pt seen by Dr Page and myself and this note is written on his behalf ( Ana Roman) Physician Comments Patient seen and examined Agree with above Continue with current supportive care Monitor labs Patient's pain did improve with the GoLYTELY and she has had multiple bowel movements We will pursue a colonoscopy so as to further evaluate this right lower quadrant abdominal pain to see if it's of colonic etiology (Preston Page MD) Ana Roman July 22, 2016 11:02 Preston Page MD July 22, 2016 17:47
[2016-07-22 12:00] VITALS: BP 127/86; PULSE 72; RESP 16; TEMP 96.9; O2SAT 100
[2016-07-22 16:00] VITALS: BP 122/86; PULSE 67; RESP 16; TEMP 98.7; O2SAT 100
--- NOTE | 2016-07-22 17:29 | MB ---
cc: PAULO MENDOZA DATE OF CONSULTATION 07/22/[address] Marquez REASON FOR CONSULTATION Right lower quadrant pain. HISTORY OF PRESENT ILLNESS The patient is a 25-year-old female who developed several days of increasing right lower quadrant pain, is now radiating up to her right upper quadrant and right flank. The patient states that she has had some pain similar to this before with menses although no pain like this and no where near as severe. Pain is a 10/10. Does not relate any p.o. intake or bowel movements. The patient denies fevers, chills, night sweats, chest pain, shortness of breath or any other complaints. The patient underwent a CT scan which was essentially unremarkable. Ultrasound of the pelvis did show a trace amount of fluid and ovarian cyst on the left but no other pathology. The patient's laboratory values were unremarkable other than chronic renal insufficiency. Of note the patient does have chronic renal insufficiency and does have peritoneal dialysis in place and not being used as the patient is on a renal transplant list at [facility]. REVIEW OF SYSTEMS 12 point review of systems is discussed with the patient is negative except the pertinent positives mentioned above in the history of present illness. PAST MEDICAL HISTORY Renal failure as above. Also premature and partially blind. PAST SURGICAL HISTORY Peritoneal dialysis catheter, multiple eye surgeries. ALLERGIES SHELLFISH. MEDICATIONS 1. Tylenol. 2. Norvasc. 3. Coreg. 4. Colace. 5. Morphine. 6. Zofran. 7. Golytely. 8. Tramadol FAMILY HISTORY Noncontributory. SOCIAL HISTORY The patient denies alcohol, tobacco or illicit drug use. PHYSICAL EXAMINATION VITAL SIGNS: Temperature 96.9 degrees, heart rate 72, respiratory rate 16, blood pressure 127/80, O2 saturation 100%. GENERAL: The patient is a thin female in no acute distress. HEENT: Head normocephalic, atraumatic. Prostatic right eye, is disconjugate. Pupils are round, reactive. Sclerae is anicteric. Mucous membranes are moist. NECK: Neck is supple. No JVD. LUNGS: Breath sounds present bilaterally. Nonlabored breathing pattern. HEART: Regular rate and rhythm. ABDOMEN: The abdomen soft. Tender to palpation in the right upper quadrant subjectively without rebound tenderness or peritonitis. Peritoneal dialysis catheter intact. Site is clean, dry and intact with no signs of infection. BACK: No CVA tenderness. EXTREMITIES: No clubbing, cyanosis or edema. NEUROLOGIC: The patient is awake, alert and oriented x3. Nonfocal peripheral exam. Cranial nerves II-XII are grossly intact. LABORATORY DATA White blood cell count 6.3, creatinine is 2.78. Urinalysis negative. ASSESSMENT/PLAN The patient is a 25-year-old female with acute right-sided abdominal pain. This is unknown etiology but may relate to bleeding ovarian cyst which would explain the fluid in the pelvis study and her symptoms. The patient clearly does not have acute appendicitis as this has been going on for a week and there is essentially no changes on multiple imaging of the appendix and the patient actually has no longer has right lower quadrant pain. However, I do feel the patient may benefit from diagnostic laparoscopy if her symptoms continue to worsen or not resolve over the next 48 hours. The patient is at risk due to her chronic renal sufficiency for complications of anesthesia. I did discuss with her and her mother. She will undergo colonoscopy as scheduled and if the patient continues to have significant symptomatology we will proceed with diagnostic laparoscopy on Wednesday. However, if the patient has resolution of her symptoms or another cause of her pain is found we will hold off on surgery. They will follow along with this patient. Thank you very much for this consultation. Paulo Mendoza MD AWG/NOLAN /3:23 PM /5:10 PM
[2016-07-22 19:35] VITALS: BP 160/97; PULSE 73; RESP 18; TEMP 98.8; O2SAT 100
[2016-07-23] VITALS: BP 119/76; PULSE 63; RESP 20; TEMP 98.7; O2SAT 100
[2016-07-23] MEDS: SODIUM CHLOR 0.9% 1000 ML INJ 1,000 ML IV SCH (03:49)
[2016-07-23 04:00] VITALS: BP 134/77; PULSE 59; RESP 20; TEMP 97.6; O2SAT 97
[2016-07-23 07:46] VITALS: BP 128/81; PULSE 65; RESP 17; TEMP 97.6; O2SAT 99
[2016-07-23 08:50] VITALS: BP 128/81; PULSE 66; RESP 17; TEMP 97.6; O2SAT 99
[2016-07-23] MEDS: SODIUM BICARBONATE 325 MG TAB PO SCH (09:00)
[2016-07-23] MEDS ORDERED: PROPOFOL 200 MG/20 ML AMP IV ONE (09:12)
--- NOTE | 2016-07-23 09:32 | PD.PROCEDR ---
GI Procedure REFERRING PHYSICIAN Tamiko PROCEDURE PERFORMED Colonoscopy INDICATION FOR PROCEDURE Abdominal pain PROCEDURE: The procedure, risks and benefits were discussed with Ms. Everett and informed consent was obtained. Anesthesia sedated her with Diprivan. She was placed in the left lateral decubitus position. Colonoscopy: The Pentax videoscope was introduced through the rectum and advanced to cecum where the ileocecal valve and appendiceal orifice were identified. Retroflexion was performed in the rectum. Colonic prep was good FINDINGS: Colonic withdrawal time greater than 6 minutes as the scope was slowly withdrawn colonic mucosa was carefully inspected this was noted to be unremarkable and within normal limits the whole way through so as retroflexion and rectal examination ESTIMATED BLOOD LOSS: None SPECIMENS REMOVED: None COMPLICATIONS: None IMPRESSION: Normal colonoscopy Right lower quadrant abdominal pain of unknown etiology PLAN: Plans as per the Gen. surgery service Continue with current supportive care Preston Page MD July 23, 2016 09:32
[2016-07-23] MEDS: SODIUM CHLORIDE 0.9% FLUSH 10 ML FLUSH IV FLUSH SCH (10:03)
[2016-07-23] MEDS: POLYETHYLENE GLYCOL 17 GM PKG PO SCH (10:03)
[2016-07-23] MEDS: CARVEDILOL 12.5 MG TAB PO SCH (10:04)
[2016-07-23] MEDS: amLODIPine BESYLATE 5 MG TAB PO SCH (10:04)
[2016-07-23] MEDS: DOCUSATE SODIUM 50 MG/SENNA 8.6 MG TAB PO SCH (10:04)
[2016-07-23] MEDS: FERROUS SULFATE 325 MG (65 MG ELEMENTAL IRON) TAB PO SCH (10:04)
--- NOTE | 2016-07-23 10:41 | HHI.PR ---
Subjective Remarks Follow-up for abdominal and flank pain. Patient seen with mother at bedside. Patient seen after colonoscopy today which was reportedly normal. The patient feels improved today. She denies any further abdominal pain. She does have some pain in her right lower back. She denies any nausea and was tolerating intake, wants to eat. She feels a bowel prep helped her constipation and may have helped the discomfort as well. She doesn't really want surgery. She would like to go home as soon as possible. She has been on Flexeril for muscle spasms in the past. Objective Vitals Vital Signs Date Time Temp Pulse Resp B/P Pulse Ox O2 Delivery O2 Flow Rate FiO2 07/23/16 09:51 65 18 127/75 100 07/23/16 09:41 68 18 120/87 100 07/23/16 09:31 98.4 73 18 131/81 100 07/23/16 08:50 97.6 66 17 128/81 99 07/23/16 07:46 97.6 65 17 128/81 99 07/23/16 04:00 97.6 59 20 134/77 97 07/23/16 00:00 98.7 63 20 119/76 100 07/22/16 19:35 98.8 73 18 160/97 100 07/22/16 16:00 98.7 67 16 122/86 100 07/22/16 12:00 96.9 72 16 127/86 100 I/O 07/22/16 07/22/16 07/22/16 07/23/16 07/23/16 07/23/16 07:00 15:00 23:00 07:00 15:00 23:00 Intake Total 360 ml 150 ml Output Total 3 ml Balance 357 ml 150 ml Intake Oral 360 ml Other 150 ml Output Stool Total 3 ml # Voids 6 1 Result Diagram: 07/22/16 0435 07/22/16 0435 Imaging Last Impressions Abdomen/Pelvis/Transvag US 07/21/16 0143 Signed Impressions: Service Date/Time: Thursday, July 21, 2016 02:23 - CONCLUSION: Small left ovarian cyst, slight fluid within the pelvis and intrauterine cavity. Saturnino Nix MD Abdomen Ultrasound 07/21/16 0000 Signed Impressions: Service Date/Time: Thursday, July 21, 2016 07:17 - CONCLUSION: Negative right lower quadrant ultrasound. No evidence of acute appendicitis. Rich Avalos MD Abdomen/Pelvis CT 07/20/16 6324 Signed Impressions: Service Date/Time: Thursday, July 21, 2016 01:00 - CONCLUSION: Asymmetrical size of the kidneys, otherwise unremarkable. Saturnino Nix MD Objective Remarks GENERAL: Well-developed well-nourished. In no acute distress. SKIN: Warm and dry. No dermatomal rash noted. HEENT: Normocephalic. Prosthetic eye. Mucous membranes pink and moist. CARDIOVASCULAR: Regular rate and rhythm. No murmur appreciated. RESPIRATORY: No accessory muscle use. Clear to auscultation. Breath sounds equal bilaterally. GASTROINTESTINAL: Abdomen soft, nontender, nondistended. Bowel sounds x4. PD catheter in place in left abdomen. MUSCULOSKELETAL: No obvious deformities. No clubbing or cyanosis. No edema. Spine with no bony step-offs or paravertebral muscle spasms. Tender muscle spasm over the left SI joint. NEUROLOGICAL: Awake and alert. No focal neurological deficits. Moves upper and lower extremities spontaneously. Normal speech. PSYCHIATRIC: Appropriate mood and affect; insight and judgment normal. 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 Patient's last menstrual period 06/28/2016. Patient denies being sexually active and urine test in ER negative. Patient presents to the emergency department with complaints of right lower quadrant abdominal pain times one week. Right lower quadrant abdominal pain. Unknown etiology. Reviewed: Afebrile. No leukocytosis. Abdomen/pelvis/transvaginal US showed Small left ovarian cyst, slight fluid within the pelvis and intrauterine cavity , no evidence of acute appendicitis. LFTs and lipase within normal limits. Consulted gastroenterology who recommended treatment for constipation and general surgery consult Tramadol and Morphine IV for pain control as needed, limit narcotics for constipation, patient and family aware and agree Diet as tolerated Constipation improved with [facility] performed colonoscopy which was unremarkable General surgery recommended diagnostic laparotomy if pain is not improved, however pain is improved today, will follow up surgery Right lower back pain/strain: Positive muscle spasm. No skin lesions. Start Flexeril. Chronic kidney disease stage IV from focal segmental glomerulosclerosis. PD catheter in place, not in use. Reviewed: Creatinine 2.88, no previous labs for comparison. Creatinine stable at 2.78. Gentle IVF. Avoid nephrotoxic agents Continue to monitor renal function Continue home bicarbonate Patient is hoping to get a kidney transplant soon. Nephrology consult was requested by the patient's family Hypertension- chronic, stable continue home amlodipine 5 mg by mouth twice a day and carvedilol 12.5 mg by mouth twice a day Continue to monitor blood pressure trend DVT prophylaxis with SCDs Discharge Planning Possible discharge later today if patient is tolerating diet and she is cleared by general surgery. Problem Qualifiers (1) Abdominal pain: Qualified Code: R10.31 - Right lower quadrant abdominal pain Cirilo Roger July 23, 2016 10:41
--- NOTE | 2016-07-23 10:42 | PD.CONS ---
HPI Service Nephrology Consult Requested By Reason for Consult Hx of CKD 5, abdominal pain Primary Care Physician Non-Staff History of Present Illness This is a 25 y/o female who was admitted 2 days ago for abdominal pain. The pain is right flank, worse with movement, worse with palpation. PMH of a premature , renal failure as and she had PD at that time, renal function improved until recently. She is also blind, has HTN, metabolic acidosis. She has biopsy proven FSGS, has PD catheter in place (Apr 08 it was placed) and is in early stages of PD training. She also in on the transplant list in [place] and has a potential living donor ready. Her nephrogist is Dr. Truong Escalante. We were consulted today for evaluation. Her renal function has improved compared to what the patient and mother are telling me, normally creatinine runs over 3 with GFR of 15. Today it is 2.7 with GFR of 20. Her urine is benign aside from proteinuria which is expected. US showing left ovarian cyst, otherwise no acute issues. Mother at bedside, she is a full code. 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 HTN metabolic acidosis Past Surgical History Multiple bilateral eye surgery secondary to premature retinopathy tonsillectomy 1993 left eye prosthetic PD catheter placed April 08, 2016 scar revision stomach 2010 (peritoneal dialysis catheter insertion scar from ) Reported Medications Sodium Bicarbonate 325 Mg Tab 325 Mg PO TIDPC Sodium Bicarbonate 325 Mg Tab 325 Mg PO BIDPC Vitamin B Complex (B-Complex Vitamins) 1 Tab Iron (Ferrous Sulfate) 325 Mg Tab 325 Mg PO DAILY Take Carvedilol 12.5 Mg Tab 12.5 Mg PO BID Amlodipine (Amlodipine Besylate) 5 Mg Tab 5 Mg PO BID Senna-Docusate Sodium (Sennosides-Docusate Sodium) 8.6-50 Mg Tab 2 Tab PO DAILY Active Ordered Medications Current Medications Medications (Trade) Dose Ordered Sig/Edgardo Route Start Time Stop Time Status Last Admin (NS 1000 ml Inj) 1,000 ml @ 42 mls/hr [id number] IV 07/21/16 04:11 07/23/16 03:49 (NS Flush) 2 ml UNSCH PRN IV FLUSH 07/21/16 04:15 07/21/16 08:13 (NS Flush) 2 ml BID IV FLUSH 07/21/16 09:00 07/23/16 10:03 (Tylenol) 650 mg Q4H PRN PO 07/21/16 04:15 (Zofran Inj) 4 mg Q6H PRN IVP 07/21/16 04:15 07/22/16 15:09 (Narcan Inj) 0.4 mg UNSCH PRN IV 07/21/16 04:15 (Morphine Inj) 2 mg Q3H PRN IV PUSH 07/21/16 04:15 07/22/16 07:54 (Norvasc) 5 mg BID PO 07/21/16 09:00 07/23/16 10:04 (Coreg) 12.5 mg BID PO 07/21/16 09:00 07/23/16 10:04 (Ferrous Sulfate) 325 mg DAILY PO 07/21/16 09:00 07/23/16 10:04 (Ermelinda-Colace) 2 tab DAILY PO 07/21/16 09:00 07/23/16 10:04 (Miralax) 17 gm DAILY PO 07/21/16 09:00 07/23/16 10:03 (Ultram) 50 mg Q8H PRN PO 07/21/16 15:45 07/21/16 19:44 (Sodium Bicarbonate) 325 mg DAILY PO 07/24/16 09:00 Family History no hx of renal disorders Social History lives with mother locally vegetable tester [facility] in [facility], transplant to be done at [place] no smoking or ETOH not sexually active full code needs assistance, she is blind (Barbra Lehman) Physical Exam Vital Signs Vital Signs Date Time Temp Pulse Resp B/P Pulse Ox O2 Delivery O2 Flow Rate FiO2 07/23/16 09:51 65 18 127/75 100 07/23/16 09:41 68 18 120/87 100 07/23/16 09:31 98.4 73 18 131/81 100 07/23/16 08:50 97.6 66 17 128/81 99 07/23/16 07:46 97.6 65 17 128/81 99 07/23/16 04:00 97.6 59 20 134/77 97 07/23/16 00:00 98.7 63 20 119/76 100 07/22/16 19:35 98.8 73 18 160/97 100 07/22/16 16:00 98.7 67 16 122/86 100 07/22/16 12:00 96.9 72 16 127/86 100 Physical Exam yound female awake/alert, no neuro deficit left eye prothesis, right eye blind but has all movements intact lungs clear S1/S2, regular rate, no murmurs abdomen soft, PD catheter left side, site benign, right flank tender to palpation ext: no edema (Barbra Lehman) Result Diagram: 07/22/16 0435 07/22/16 0435 Imaging Last 72 hours Impressions Abdomen/Pelvis/Transvag US 07/21/16 0143 Signed Impressions: Service Date/Time: Thursday, July 21, 2016 02:23 - CONCLUSION: Small left ovarian cyst, slight fluid within the pelvis and intrauterine cavity. Saturnino Nix MD Abdomen Ultrasound 07/21/16 0000 Signed Impressions: Service Date/Time: Thursday, July 21, 2016 07:17 - CONCLUSION: Negative right lower quadrant ultrasound. No evidence of acute appendicitis. Rich Avalos MD Abdomen/Pelvis CT 07/20/16 2333 Signed Impressions: Service Date/Time: Thursday, July 21, 2016 01:00 - CONCLUSION: Asymmetrical size of the kidneys, otherwise unremarkable. Saturnino Nix MD (Barbra Lehman) Assessment and Plan Problem List: (1) Abdominal pain Plan: unknown etiology, not thought to be related to renal failure or renal issues urine is benign no evidence of UTI, pyelonephritis, renal stone, or appendicitis not likely related to catheter, not likely to be peritonitis, no fluid to culture but WBC are normal, she is afebrile there is a simple cyst on left ovary there was mention of laparoscopic surgery for exploratory purposes, however I do not recommend surgery if she is to start PD soon unless it is absolutely necessary surgery is managing diet as tolerated (low protein) (2) Kidney failure Plan: she makes a good amount of urine at this time dialysis is not indicated she is following up with vegetable tester in [place], also [facility] in [place] for transplant currently having PD training she can follow up with then after discharge tolerating oral fluids, stop IVF reduce bicarbonate dosage to once daily D/W pt and mother she can be discharged from renal perspective (Barbra Lehman) Assessment and Plan patient was seen and examined. Renal function appears to be stable. No immediate need for dialysis. (Warren Philippe MD) Problem Qualifiers (1) Abdominal pain: Qualified Code: R10.31 - Right lower quadrant abdominal pain Barbra Lehman July 23, 2016 10:42 Warren Philippe MD July 23, 2016 16:43
[2016-07-23] MEDS ORDERED: CYCLOBENZAPRINE HCL 10 MG TAB PO ONE (11:00)
[2016-07-23] MEDS ORDERED: CYCLOBENZAPRINE HCL 10 MG TAB PO PRN (11:00)
--- NOTE | 2016-07-23 11:28 | HHI.PR ---
Subjective Subjective Notes Just back from colonoscopy Already ate lunch Total resolution of RLQ pain Mother at bedside Objective Vitals/I&O Vital Signs Date Time Temp Pulse Resp B/P Pulse Ox O2 Delivery O2 Flow Rate FiO2 07/23/16 09:51 65 18 127/75 100 07/23/16 09:31 98.4 07/21/16 04:24 Room Air Cardiovascular: Regular Lungs: Clear Abdomen: Non-distended, Non-tender, Other (PD cath ) Extremities: No edema A/P Assessment and Plan 25 year old female with CKD on PD at home; with RLQ pain -Total resolution of RLQ pain -Tolerating diet -GS clear for DC -I gave family our office information should she wants to pursue an elective dx lap -Otherwise no follow up needed Carola Vázquez July 23, 2016 11:28
[2016-07-23 12:08] VITALS: BP 108/69; PULSE 71; RESP 17; TEMP 98.3; O2SAT 100
[2016-07-23] MEDS ORDERED: SENN1TAB PO (12:21)
[2016-07-23] MEDS ORDERED: SODI325T PO (12:21)
[2016-07-23] MEDS ORDERED: CYCL1TAB29 PO (12:21)
--- NOTE | 2016-07-23 12:26 | HHI.DS ---
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 and hypertension. Patient's last menstrual period 06/28/2016. Patient denies being sexually active and urine test in ER negative. Patient presents to the emergency department with complaints of right lower quadrant abdominal pain times one week. Patient describes the pain as progressively getting worse in nature 10 out of 10 in severity at its worse. RLQ abdominal pain described as a constant aching sensation worse with movement. Pain is better after morphine , is currently a 5 out of 10 associated with nausea but no vomiting. Patient reports last bowel movement was yesterday continues to have positive flatus. Patient denies chest pain vomiting diarrhea fevers chills or shortness of breath. Patient does have PD catheter on the left side of her abdomen was last flushed 07/13/2016. There is no discharge or erythema surrounding PD catheter insertion site. Patient has not yet used PD catheter for dialysis does have flushed routinely every 2 weeks. The patient says she normally has abdominal pain associated with her menses but because this is been going on for 1 week she got concerned as that was atypical. She says she has a PD catheter for dialysis which was placed this April. She says she is hoping not to use it but it is there in case she needs to start dialysis. She says she has been having normal urine output. She denies any symptoms associated with urination. She endorses constipation. CBC/BMP: 07/22/16 0435 07/22/16 0435 Significant Findings Laboratory Tests Test 07/20/16 07/21/16 07/22/16 23:15 00:10 04:35 Blood Urea Nitrogen 38 MG/DL (7-18) 31 MG/DL (7-18) Creatinine 2.88 MG/DL 2.78 MG/DL (0.50-1.00) (0.50-1.00) Estimat Glomerular Filtration 20 ML/MIN (>89) 20 ML/MIN (>89) Rate Urine Protein 30 mg/dL (NEG-TRACE) Monocytes (%) (Auto) 9.5 % (0.0-8.0) Chloride Level 108 MEQ/L (98-107) Aspartate Amino Transf 13 U/L (15-37) (AST/SGOT) Alkaline Phosphatase 39 U/L (45-117) Albumin 3.3 GM/DL (3.4-5.0) Imaging Last Impressions Abdomen/Pelvis/Transvag US 07/21/16 0143 Signed Impressions: Service Date/Time: Thursday, July 21, 2016 02:23 - CONCLUSION: Small left ovarian cyst, slight fluid within the pelvis and intrauterine cavity. Saturnino Nix MD Abdomen Ultrasound 07/21/16 0000 Signed Impressions: Service Date/Time: Thursday, July 21, 2016 07:17 - CONCLUSION: Negative right lower quadrant ultrasound. No evidence of acute appendicitis. Rich Avalos MD Abdomen/Pelvis CT 07/20/16 2333 Signed Impressions: Service Date/Time: Thursday, July 21, 2016 01:00 - CONCLUSION: Asymmetrical size of the kidneys, otherwise unremarkable. Saturnino Nix MD PE at Discharge GENERAL: Well-developed well-nourished. In no acute distress. SKIN: Warm and dry. No dermatomal rash noted. HEENT: Normocephalic. Prosthetic eye. Mucous membranes pink and moist. CARDIOVASCULAR: Regular rate and rhythm. No murmur appreciated. RESPIRATORY: No accessory muscle use. Clear to auscultation. Breath sounds equal bilaterally. GASTROINTESTINAL: Abdomen soft, nontender, nondistended. Bowel sounds x4. PD catheter in place in left abdomen. MUSCULOSKELETAL: No obvious deformities. No clubbing or cyanosis. No edema. Spine with no bony step-offs or paravertebral muscle spasms. Tender muscle spasm over the left SI joint. NEUROLOGICAL: Awake and alert. No focal neurological deficits. Moves upper and lower extremities spontaneously. Normal speech. PSYCHIATRIC: Appropriate mood and affect; insight and judgment normal. Pt update on day of discharge Cleared by general surgery for discharge and outpatient follow-up if needed. Tolerating diet. Discussed with RN, improvement with Flexeril, patient asking to be discharged. 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 and hypertension. Patient's last menstrual period 06/28/2016. Patient denies being sexually active and urine test in ER negative. Patient presented to the emergency department with complaints of right lower quadrant abdominal pain times one week. Right lower quadrant abdominal pain. Unclear etiology, possibly multifactorial from constipation, lower back strain, menstrual pain, ect. Symptoms improved. Reviewed: Afebrile. No leukocytosis. Abdomen/pelvis/transvaginal US showed Small left ovarian cyst, slight fluid within the pelvis and intrauterine cavity , no evidence of acute appendicitis. LFTs and lipase within normal limits. Consulted gastroenterology who recommended treatment for constipation and general surgery consult Constipation and symptoms seemed to improve after [facility] performed colonoscopy which was unremarkable General surgery has cleared the patient for discharge, can follow up with them outpatient if needed Right lower back pain: Positive muscle spasm. No skin lesions. Improved with Flexeril, continue as needed. Chronic kidney disease stage IV from focal segmental glomerulosclerosis. PD catheter in place, not in use. Reviewed: Creatinine 2.88, no previous labs for comparison. Creatinine stable at 2.78. Avoid nephrotoxic agents Nephrology consulted, decreased home bicarbonate Continue follow-up with nephrology at [facility] Pt Condition on Discharge: Stable Discharge Disposition: Discharge Home Discharge Time: > 30 minutes Discharge Instructions DIET: Follow Instructions for: Renal Failure Diet Activities you can perform: Regular-No Restrictions Follow up Referrals: Gastroenterology - 10 Days with Preston Page MD Nephrology - 1 Month SHOE ASSOCIATE - 2 Weeks PCP Follow-up - 1 Week New Medications: Cyclobenzaprine (Flexeril) 10 Mg Tab 5 MG PO Q8H PRN SPASM #15 TAB Sennosides-Docusate Sodium (Senna Plus 8.6-50 mg) 1 Tab Tab 1 TAB PO BID Constipation #60 TAB Sodium Bicarbonate (Sodium Bicarbonate) 325 Mg Tab 325 MG PO DAILY CKD #30 TAB Continued Medications: Amlodipine (Amlodipine) 5 Mg Tab 5 MG PO BID Blood Pressure Management #30 Ref 0 TAB B-Complex Vitamins (Vitamin B Complex) 1 Tab Carvedilol (Carvedilol) 12.5 Mg Tab 12.5 MG PO BID #60 Ref 0 TAB Ferrous Sulfate (Iron) 325 Mg Tab 325 MG PO DAILY Take Nutritional Supplement Ref 0 TAB Discontinued Medications: Sennosides-Docusate Sodium (Senna-Docusate Sodium) 8.6-50 Mg Tab 2 TAB PO DAILY Constipation Ref 0 TAB Sodium Bicarbonate (Sodium Bicarbonate) 325 Mg Tab 325 MG PO BIDPC #60 Ref 0 TAB Sodium Bicarbonate (Sodium Bicarbonate) 325 Mg Tab 325 MG PO TIDPC #90 Ref 0 TAB Cirilo Roger July 23, 2016 12:26 Cirilo Roger July 23, 2016 12:26
[2016-07-24] MEDS ORDERED: SODIUM BICARBONATE 325 MG TAB PO SCH (09:00)
== END 2016-07-23 13:33 | disposition home or self-care (01) ==
LOC: NEPE 22:46 → NEDA 07-21 04:24 → NEPHCDU 07-21 05:57
PROVIDERS: ADMIT Internal Medicine; ATTEND Internal Medicine
DX: R10.31 Right lower quadrant pain (principal); I12.0 Hypertensive chronic kidney disease with stage 5 chronic kidney disease or end stage renal disease; N18.5 Chronic kidney disease, stage 5; N19 Unspecified kidney failure; K59.09 Other constipation; M62.838 Other muscle spasm; N83.202 Unspecified ovarian cyst, left side; H54.0 Blindness, both eyes; Z99.2 Dependence on renal dialysis; Z91.013 Allergy to seafood
CPT/HCPCS: 00810; 45378; 74176; 76705; 76830; 76856; 80053; 81001; 83690; 84100; 84703; 85025; 85610; 85730; 93975; 96361; 96374; 96375; 99285; G0378; J2270; J2405; J7030